=== PATIENT | female | born 1965 | race Caucasian/White ===

== ENCOUNTER 2024-05-07 23:06 | Emergency (ER) | payer OTHER, SELFPAY ==
[2024-05-07 23:13] VITALS: BP 126/62
[2024-05-07 23:39] LABS: % Basophils 0.5 % (0-2); % Eosinophils 0.7 % (0-6); % Immature Granulocytes 0.3 % (0-0.5); % Lymphocytes 6.9 % (20.5-51.1); % Monocytes 4.1 % (1.7-9.3); % Neutrophils 87.5 % (42.2-75.2); Absolute Basophils 0.1 10^3/uL (0-0.2); Absolute Eosinophils 0.1 10^3/uL (0-0.7); Absolute Monocytes 0.6 10^3/uL (0.1-0.6); Absolute Neutrophils 12.7 10^3/uL (1.4-6.5); Hematocrit 40.1 % (37.0-47.0); Hemoglobin 14.1 g/dL (12.0-16.0); Mean Corp Hgb Conc. 35.2 g/dL (33.0-37.0); Mean Corpuscular Hgb 29.4 pg (27.0-31.0); Mean Corpuscular Volume 83.5 fL (81.0-99.0); Nucleated Red Blood Cells % 0 %; Platelet Count 326 10^3/uL (130-400); Red Cell Dist. Width 11.6 % (11.5-14.5); White Blood Cell Count 14.5 10^3/uL (4.8-10.8)
[2024-05-07 23:50] LABS: ALT (SGPT) 48 U/L (0-35); AST (SGOT) 132 U/L (14-36); Albumin 4.2 g/dl (3.5-5.0); Alkaline Phosphatase 74 U/L (38-126); Blood Urea Nitrogen 14 mg/dl (7-17); Calcium 9.6 mg/dl (8.4-10.2); Carbon Dioxide 26 mmol/L (22-30); Chloride 104 mmol/L (98-107); Glucose 78 mg/dl (70-99); Potassium 3.8 mmol/L (3.5-5.1); Sodium 138 mmol/L (135-145); Total Bilirubin 0.6 mg/dl (0.2-1.3); Total Protein 7.1 g/dl (6.3-8.2); eGFR > 60.00
[2024-05-08 00:03] LABS: Troponin I < 0.012 ng/ml
[2024-05-08 05:40] VITALS: BP 118/74
[2024-05-08 06:20] LABS: Troponin I < 0.012 ng/ml
--- NOTE | 2024-05-08 07:19 | ED.GENMED ---
History of Present Illness
<Sukhjinder Lima DO, Resident - Last Filed: 05/08/24 08:21>
General
Chief Complaint: Chest Pain
Source: patient and records
Time Seen by Provider: 05/08/24 07:04
History of Present Illness
History of Present Illness:
58-year-old female with past medical history significant for migraines, GERD, hypertension, hypothyroidism presents for substernal chest pain. Patient reports feeling substernal chest pain last night, described as a tightness. While at home
patient took Zofran and aspirin and called EMS, reports that her symptoms resolved after the Zofran and aspirin. EKG in the emergency department was nonischemic. Patient reports she had an EGD and colonoscopy around September 2023 and follows GI at
[place]. She reports taking omeprazole daily and has been diagnosed Carter's. Of note she also takes semaglutide and Motrin approximately 4-5 times a week, she reports used to use Motrin daily. Patient reports that her abdominal symptoms are
typically worse with food, denies any nausea vomiting or diarrhea. Reports no change in color of stool.
Past History
<Sukhjinder Lima DO, Resident - Last Filed: 05/08/24 08:21>
Past History
ED Past Medical History: GERD, HTN and Hypothyroidism
Social History
Tobacco: Non-smoker
Alcohol: None
Drug: None
Review of Systems
<Sukhjinder Lima DO, Resident - Last Filed: 05/08/24 08:21>
Review of Systems
Constitutional: Reports chills
Respiratory: Reports no symptoms
Cardiac: Reports chest pain
ABD/GI: Reports abdominal pain (Left upper quadrant, cramping); Denies nausea, vomiting, diarrhea, bloody stools or black stools
: Reports no symptoms
Musculoskeletal: Reports no symptoms
Neurological: Reports no symptoms
Phy Exam
<Sukhjinder Lima DO, Resident - Last Filed: 05/08/24 08:21>
General Physical Exam
General Presentation: well appearing and no apparent distress
General Skin: warm and dry
Cardiovascular Exam
Cardiovascular Exam: regular rate/rhythm, no edema and no murmur
Pulmonary Exam
Pulmonary Exam: lungs clear, no respiratory distress, no crackles and no wheezing
Gastrointestinal Exam
Gastrointestinal Exam: non tender (Abdomen nontender to palpation in all 4 quadrants to deep and light palpation. No rebound or guarding.), soft and non distended
Scores
<Sukhjinder Lima DO, Resident - Last Filed: 05/08/24 08:21>
Heart Score for Chest Pain Patients
STEMI patient?: No
History: Slightly or Non-Suspicious
ECG: Normal
Age: >45 - <65 years
Risk Factors: 1 or 2 Risk Factors
Troponin: </= Normal Limit
Heart Score for Chest Pain Patients: 2
Heart Score Risk: 2.5% MACE over next 6 weeks
Course
<Sukhjinder Lima DO, Resident - Last Filed: 05/08/24 08:21>
Orders/Labs/Results
Orders:
Orders
05/07/24 23:07
Electrocardiogram (*1) Urgent
Reason for Study: Chest Pain
EKG- Treatment ONCE
05/07/24 23:26
Complete Blood Count/With Diff Urgent
Comprehensive Metabolic Panel Urgent
Troponin I Urgent
05/08/24 00:04
Chest [CR Chest - 2 Views ] Urgent
Comment:
Reason For Exam: chest pain
05/08/24 05:29
ECG [Electrocardiogram (*1)] Urgent
Reason for Study: Chest Pain
Cardiology Consult: Unknown
05/08/24 05:30
EKG- Treatment ONCE
05/08/24 05:38
Troponin I Urgent
Abnormal Lab Results
05/07/24
23:26
WBC 14.5 H 10^3/uL
(4.8-10.8)
Absolute Neuts (auto) 12.7 H 10^3/uL
(1.4-6.5)
Absolute Lymphs (auto) 1.0 L 10^3/uL
(1.2-3.4)
Neutrophils % 87.5 H %
(42.2-75.2)
Lymphocytes % 6.9 L %
(20.5-51.1)
AST 132 H U/L
(14-36)
ALT 48 H U/L
(0-35)
05/07/24 23:26
05/07/24 23:26
Vital Signs
Initial and Last Documented VS:
Initial Vital Signs
Temp Pulse Resp BP Pulse Ox
97.9 F 80 20 126/62 100
05/07/24 23:13 05/07/24 23:13 05/07/24 23:13 05/07/24 23:13 05/07/24 23:13
Last Documented Vital Signs
Temp Pulse Resp BP Pulse Ox
98 F 64 16 118/74 99
05/08/24 05:40 05/08/24 05:40 05/08/24 06:00 05/08/24 05:40 05/08/24 05:40
<Kb Villatoro, DO - Last Filed: 05/08/24 08:19>
Orders/Labs/Results
Orders:
Orders
05/07/24 23:07
Electrocardiogram (*1) Urgent
Reason for Study: Chest Pain
EKG- Treatment ONCE
05/07/24 23:26
Complete Blood Count/With Diff Urgent
Comprehensive Metabolic Panel Urgent
Troponin I Urgent
05/08/24 00:04
Chest [CR Chest - 2 Views ] Urgent
Comment:
Reason For Exam: chest pain
05/08/24 05:29
ECG [Electrocardiogram (*1)] Urgent
Reason for Study: Chest Pain
Cardiology Consult: Unknown
05/08/24 05:30
EKG- Treatment ONCE
05/08/24 05:38
Troponin I Urgent
Abnormal Lab Results
05/07/24
23:26
WBC 14.5 H 10^3/uL
(4.8-10.8)
Absolute Neuts (auto) 12.7 H 10^3/uL
(1.4-6.5)
Absolute Lymphs (auto) 1.0 L 10^3/uL
(1.2-3.4)
Neutrophils % 87.5 H %
(42.2-75.2)
Lymphocytes % 6.9 L %
(20.5-51.1)
AST 132 H U/L
(14-36)
ALT 48 H U/L
(0-35)
05/07/24 23:26
05/07/24 23:26
Vital Signs
Initial and Last Documented VS:
Initial Vital Signs
Temp Pulse Resp BP Pulse Ox
97.9 F 80 20 126/62 100
05/07/24 23:13 05/07/24 23:13 05/07/24 23:13 05/07/24 23:13 05/07/24 23:13
Last Documented Vital Signs
Temp Pulse Resp BP Pulse Ox
98 F 64 16 118/74 99
05/08/24 05:40 05/08/24 05:40 05/08/24 06:00 05/08/24 05:40 05/08/24 05:40
Lelt;Sukhjinder Lima DO, Resident - Last Filed: 05/08/24 08:21>
MDM/Problems Addressed
Differential Diagnosis Includes:
Gastritis, peptic ulcer disease, GERD, dysmotility, atypical chest pain
MDM/Problems Addressed:
58-year-old female past medical history of GERD, migraines, hypothyroidism presents for substernal chest pain
Patient reports she began feeling substernal chest pain last night, she took Zofran and aspirin called EMS and her pain subsequently resolved
Patient reports having episodes of this previously which was associated with nausea and vomiting, no nausea vomiting this episode. Vomit was nonbloody during previous episode
EKG in emergency department was nonischemic, serial troponins negative
Patient reports following GI at [place], last colonoscopy and endoscopy was September 2023, reports no ulcers seen previous EGD
Patient reports using omeprazole daily as well as Motrin approximately 4-5 times a week, previously was taking Motrin daily
Reports pain is exacerbated with food
Patient also takes semaglutide, suspicion for pancreatitis low
Patient reports no discoloration of stool, no blood in vomit previously
Chemistry significant for slight transaminitis, WBCs elevated. Hemoglobin within normal limits
Patient reports going through menopause approximately 10 years ago, no need for test
Abdomen nontender to palpation, no rebound or guarding present
Chest x-ray normal
High suspicion for gastritis/peptic ulcer disease. At this point patient symptoms have resolved and she is interested in pursuing workup outpatient
Educated patient on connection between NSAIDs and gastritis/PUD. Encouraged prudent NSAID use and replacement with Tylenol
Encouraged use of omeprazole proximately 30 minutes prior to meals for best efficacy
Will send patient home with follow-up with primary care physician, GI doctor and referral for [facility] for potential stress test
<Sukhjinder Lima DO, Resident - Last Filed: 05/08/24 08:21>
*Critical Care Note
Total Time (30-74mins, 75-104mins- exclusive of procedures): Not Applicable
ED Attending Note
<Sukhjinder Lima DO, Resident - Last Filed: 05/08/24 08:21>
-
Portions of this chart may have been created with voice recognition software.� Occasional wrong word or��sound alike� substitutions may have occurred due to the inherent limitations of voice recognition software.
<Kb Villatoro, DO - Last Filed: 05/08/24 08:19>
ED Attending Note
Patient seen and examined by attending physician: Yes
I performed a history and physical exam of patient and discussed management with resident, I reviewed resident's note and agree with documented findings and plan of care.: Yes
ED Attending Note:
58-year-old female with a history of reflux disease who uses chronic NSAIDs due to fibromyalgia. Patient states that starting last night around 830 developed chest pain. She has had this before. She states she did not eat a good dinner. Meaning
she ate more than usual and had apple pie. She admits that the last time this happened was after a large meal that she does not typically eat as well. She has been on semaglutide. Patient states her symptoms have been resolved since about 1130
last night. Troponin x 2 negative. EKG x 2 negative. Heart regular. Abdomen soft nontender. Assessment plan: Suspect reflux disease/gastritis. Also could consider gallbladder disease. Does admit her father had coronary disease in his 50s.
Will refer to outpatient cardiology follow-up consideration of stress testing. Low suspicion for ACS and more suspect GI cause. Does have follow-up with GI. Recommend she take her omeprazole 30 minutes prior to eating and drinking anything in the
morning.
Discharge Plan
Departure
Patient Disposition: Home (Routine Discharge)
Date of Disposition: 05/08/24
Time of Disposition: 08:09
Patient with high blood pressure during this ER visit?: No
Condition: Good
Discharge Problem:
Gastritis
Instructions: Gastritis, Acid Reflux and GERD in Adults (DC), Chest Pain DCA Follow Up
Prescriptions:
No Action
levothyroxine 150 MCG tablet
150 mcg PO DAILY
amlodipine [Norvasc] 5 MG tablet
5 mg PO DAILY
bupropion HCl 300 MG tablet extended release 24 hr
300 mg PO DAILY
metoprolol succinate 25 MG tablet extended release 24 hr
25 mg PO DAILY
Omeprazole
40 mg PO DAILY
gabapentin 300 MG capsule
300 mg PO TID Qty: 21 0RF
cyclobenzaprine 10 MG tablet
10 mg PO TIDPRN PRN (Reason: pain) Qty: 9 0RF
Referrals:
Anirudh Eller MD [Family Provider] - Call in 1-3 days for appt
Activity Restrictions/Additional Instructions:
Please follow-up with your primary care physician, call in 1 to 3 days for appointment
Instructions attached to follow-up with [facility], they will call you to schedule an appointment
Please schedule follow-up with your gastrointestinal doctor to be seen a soon as possible
Please limit NSAID use, Motrin, aspirin, naproxen can all exacerbate symptoms you are feeling. Try pain management with Tylenol
Please use your omeprazole approximately 30 minutes prior to meals for best efficacy
Please return to the emergency department if you notice symptoms such as severe nausea and vomiting, fever, severe abdominal pain or any blood in the vomit or diarrhea. Please return if symptoms worsen, return or with any concerns.
Interventions
Interventions:
*Risk Screen - Suicide Last Done: 05/07/24 23:13
*General Assessment Last Done: 05/07/24 23:13
*Neglect/Abuse Screening Last Done: 05/07/24 23:13
ED- Fall Risk Assessment Last Done: 05/07/24 23:13
*ED COVID-19 Vaccine History Last Done: 05/07/24 23:13
ED- Cardiac Assessment Last Done: 05/08/24 07:13
Discharge Date and Time
Print Language: [id number]
[2024-05-08 08:21] VITALS: BP 121/74
== END 2024-05-08 08:25 | disposition home or self-care (01) ==
LOC: EMR 23:06
PROVIDERS: Emergency Medicine; EMERGENCY PHYSICIAN Emergency Medicine; FAMILY PHYSICIAN Family Medicine
DX: K29.70 Gastritis, unspecified, without bleeding (principal); K21.9 Gastro-esophageal reflux disease without esophagitis; I10 Essential (primary) hypertension; E03.9 Hypothyroidism, unspecified; M79.7 Fibromyalgia; Z79.899 Other long term (current) drug therapy; Z82.49 Family history of ischemic heart disease and other diseases of the circulatory system
CPT/HCPCS: 99283; 71046; 80053; 84484; 85025; 93005

== ENCOUNTER → 2024-06-21 13:00 | Outpatient (REF) | payer OTHER, SELFPAY | LOC: PAVMRI 13:00 | PROVIDERS: ATTENDING PHYSICIAN Physical Medicine & Rehabilitation; FAMILY PHYSICIAN Family Medicine | DX: M75.41 Impingement syndrome of right shoulder (principal) | CPT/HCPCS: 73221 ==